=== PATIENT | male | born 1990 | race Caucasian/White ===

== ENCOUNTER 2017-10-30 09:30 | Emergency (ER) | payer SELFPAY ==
[2017-10-30 09:31] VITALS: BP 132/80; PULSE 75; RESP 16; TEMP 36.2; O2SAT 98; BMI 25.0
--- NOTE | 2017-10-30 09:46 | CT_ITS ---
STUDY: CT ABDOMEN AND PELVIS WITHOUT CONTRAST REASON FOR EXAM: Male, 27 years old. Flank pain and penile pain. History of kidney stones. RADIATION DOSAGE (If Supplied By Facility): CTDIvol = ( 8.08 ) mGy, DLP = ( 406.29 ) mGycm TECHNIQUE: Transaxial images were obtained from the dome of the diaphragm to the symphysis pubis without oral contrast, and without intravenous contrast. Sagittal and coronal images were reconstructed. Individualized dose optimization techniques were used for this CT. COMPARISON: None. FINDINGS: The visualized lung bases are unremarkable. The visualized portions of the heart are within normal limits. Normal liver. Normal gallbladder and extrahepatic biliary system. There is borderline splenomegaly. Normal pancreas. Normal bilateral adrenal glands. There is a 2 mm calculus in the mid upper portion of the right kidney. Mild degree of left hydronephrosis and hydroureter due to a 2.5 mm calculus at the left ureterovesical junction. Mild degree of left perinephric and periaortic ureteric stranding. Normal visualized stomach. Normal small intestine. Normal colon. There are surgical clips in the region of the appendix consistent with a prior appendectomy. Normal abdominal aorta. Normal inferior vena cava. There is borderline retroperitoneal lymphadenopathy with enlarged nodes no greater than 10mm in the short axis diameter. Normal urinary bladder. Small bilateral benign-appearing inguinal lymph nodes. Normal abdominal wall. There is straightening of the normal lumbar lordosis. CT/Abdomen/Pelvis without Cont IMPRESSION: 2.5 mm calculus at the left ureterovesical junction causing a mild degree of left hydronephrosis and left hydroureter with mild degree of left perinephric stranding and periureteric stranding. 2 mm nonobstructive calculus in the upper pole of the right kidney. Electronically Signed: Cuong Elias MD at 10:28 EDT Tel [phone], Service support ,
[2017-10-30] MEDS: Morphine 4 MG/ML Syringe IV (09:58)
[2017-10-30] MEDS: 0.9% Normal Saline 1,000 ML 250 ML IV (09:58)
[2017-10-30] MEDS: Ketorolac 30 MG/ML Syringe IV (09:58)
[2017-10-30] MEDS: Ondansetron 4 MG/2 ML Vial IV (09:58)
[2017-10-30 10:30] LABS: Anion Gap 10 (5-15); BUN 15 mg/dL (7-18); BUN/Creat Ratio 10.7 RATIO (10-20); Calcium,Total 9.3 mg/dL (8.5-10.1); Chloride 105 mmol/L (98-107); EST Glomerular Filtration Rate 64 mL/min (>60); Est Glom Filt Rate - Afr Amer 78 mL/min (>60); Estimated Creatinine Clearance 71.52 ml/min; Glucose 96 mg/dL (74-106); Sodium Level 139 mmol/L (136-145)
[2017-10-30 10:32] LABS: Color, Urine Yellow (Yellow); Glucose, Dipstick Normal (Normal); Ketone-Dipstick Negative (Negative); Leukocyte Esterase-Dipstick 25 /ul (Negative); Nitrite-Dipstick Negative (Negative); Occult Blood-Urine 50 /ul (Negative); Protein-Dipstick 30 mg/dl (Negative); Specific Gravity, Urine 1.015 (1.002-1.030); Urine Bilirubin Dipstick Negative (Negative); Urine Clarity Cloudy (Clear); Urine Urobilinogen Normal (Normal)
[2017-10-30 10:38] LABS: Bacteria 1+ /hpf (None Seen); Mucous, Urine 2+ /hpf (<or=2+); Red Blood Cells-Urine 0-5 SEEN /hpf (0-5); Squamous Epithelial Cells - UA 0-5 SEEN /hpf (0-5); White Blood Cells 0-5 SEEN /hpf (0-5)
--- NOTE | 2017-10-30 11:23 | ED.DCSUM_ITS ---
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 He complains of urgency and frequency. There is no history of trauma. He does report nausea and vomiting. He denies fever, chills night sweats. He has no other complaints. Physical Examination: Patient is in obvious discomfort. He cannot find a position of comfort. Vital signs noted and remarkable and elevated blood pressure 139/87 most likely secondary to pain. HEENT exam unremarkable. Heart is regular without murmur, gallop or rub. S1 and S2 are normal. Lungs are clear to auscultation with good movement of air bilaterally. Abdomen is soft and nontender. There is no guarding or peritoneal findings. There is no palpable pulsatile mass. There is no abdominal bruit. Amaya sign is negative. Negative Rovsing sign. There is no evidence of inguinal or umbilical hernia. There is no CVA tenderness. There are no dermatologic lesions noted. Neuro exam is nonfocal. Test Results: Basic metabolic panel reveals slight elevation of creatinine of 1.4. Urine reveals 0-5 WBCs, 0-5 RBCs and 1+ bacteria. CT of the abdomen without contrast reveals a right renal stone and a 2.5 mm left ureteral stone at the UVJ. There is evidence of hydroureter and hydronephrosis. Emergency Department Course and Treatment: IV was established. He was medicated with 4 mg of morphine IV push, 30 Hilario grams of Toradol IV push and 4 mg of Zofran IV push. Workup was undertaken for ureterolithiasis. Patient was reassessed at 1115 he is no longer in obvious pain. He complains of mild discomfort. Treatment Plan: Discharged to home with prescription for Naprosyn and Percocet. Patient was instructed to follow-up with his doctors in [place] since he is visiting. Disposition: Discharged home in stable improved condition Impression: 1. Obstructing left ureteral stone with hydronephrosis 2. Nonobstructing right renal stone This note was generated with [employer] dictation software. It may contain incorrect words, spelling, and punctuation that were not noted in review of the chart prior to signing ED Disposition - Plan for ED Patient: Disposition: Home or Assisted Living Chief Complaint: Flank Pain Instructions: ED Stone Renal W Colic Prescriptions: Oxycodone HCl/Acetaminophen [Percocet 5/325] 1 tab PO Q6H PRN PRN 5 Days #20 tab PRN Reason: Pain Naproxen [Naprosyn] 500 mg PO BID #14 tab Referrals: [facility],Out of [Primary Care Provider] - 1 Week
[2017-10-30 11:43] VITALS: BP 126/82; PULSE 66; RESP 16; O2SAT 97
== END 2017-10-30 11:44 | disposition home or self-care (01) ==
PROVIDERS: Emergency Provider Emergency Medicine
DX: N13.2 Hydronephrosis with renal and ureteral calculous obstruction (principal)
CPT/HCPCS: 74176; 80048; 81001; 96361; 96374; 96375; 99283; J7030; A4216; J2405